=== PATIENT | female | born 1960 | race Caucasian/White ===

== ENCOUNTER 2018-05-29 12:58 | Day surgery (SDC) | payer OTHER ==
[2018-05-29] MEDS ORDERED: PROPOFOL 60 ML (15:39)
== END 2018-05-29 16:31 | disposition home or self-care (01) ==
LOC: GIL 12:58
DX: Z12.11 Encounter for screening for malignant neoplasm of colon (principal); D12.5 Benign neoplasm of sigmoid colon; K57.30 Diverticulosis of large intestine without perforation or abscess without bleeding; K25.9 Gastric ulcer, unspecified as acute or chronic, without hemorrhage or perforation; D50.9 Iron deficiency anemia, unspecified; J45.909 Unspecified asthma, uncomplicated; E78.5 Hyperlipidemia, unspecified; E11.9 Type 2 diabetes mellitus without complications
CPT/HCPCS: 43239; 88305; 88312

== ENCOUNTER 2019-01-24 20:08 | Emergency (ER) | payer MEDICAID, OTHER ==
[2019-01-24] MEDS: HYDROCODONE/APAP (10/325) TAB PO (22:33)
== END 2019-01-25 00:37 | disposition home or self-care (01) ==
LOC: FTE 01-25 00:37
DX: S93.401A Sprain of unspecified ligament of right ankle, initial encounter (principal); J45.909 Unspecified asthma, uncomplicated; W01.0XXA Fall on same level from slipping, tripping and stumbling without subsequent striking against object, initial encounter; Y92.9 Unspecified place or not applicable
CPT/HCPCS: 73610; 73610-RT; 73630; 99283-25